=== PATIENT | female | born 1985 | race African-American/Black ===

== ENCOUNTER 2018-10-19 05:59 | Emergency (ER) | payer SELFPAY ==
[2018-10-19 07:26] VITALS: BP 130/65
--- NOTE | 2018-10-19 14:27 | ER Document Report ---
Entered by ANGELI CALLAHAN SCRIBE 10/19/18 0717 Acting as scribe for:JODEE GARCIA MD ED General - General Chief Complaint: Cough Stated Complaint: COUGHING UP BLOOD Time Seen by Provider: 10/19/18 07:04 Mode of Arrival: Ambulatory Information source: Patient Notes: Patient is a 33 year old female that presents to the emergency department today with complaints of noticing blood in her sputum when brushing her teeth this morning. Patient reports after brushing her teeth, she was rinsing out her mouth and she spit up some thin white normal-looking sputum that had blood in it. Patient mentions she has a bad tooth and she is unsure if that could be related. Patient mentions feeling a "bump" over the left side of her neck for x2 weeks as well. Patient has no smoking history. Patient denies any recent upper respiratory symptoms. - Related Data Allergies/Adverse Reactions: No Known Allergies Allergy (Unverified 10/19/18 06:05) Past Medical History - General Information source: Patient - Social History Smoking Status: Never Smoker Cigarette use (# per day): No Frequency of alcohol use: None Drug Abuse: None Occupation: Traveling nurse Lives with: Family Family History: Reviewed & Not Pertinent Patient has suicidal ideation: No Patient has homicidal ideation: No - Medical History Medical History: Negative Surgical Hx: Negative Review of Systems - Review of Systems Constitutional: No symptoms reported EENT: No symptoms reported Cardiovascular: No symptoms reported Respiratory: See HPI, Sputum - with blood. denies: Cough Gastrointestinal: No symptoms reported Genitourinary: No symptoms reported Female Genitourinary: No symptoms reported Musculoskeletal: No symptoms reported Skin: No symptoms reported Hematologic/Lymphatic: No symptoms reported Neurological/Psychological: No symptoms reported -: Yes All other systems reviewed and negative Physical Exam - Vital signs Vitals: Temp Pulse Resp BP Pulse Ox 98.2 F 88 16 135/73 H 100 10/19/18 06:02 10/19/18 06:02 10/19/18 06:02 10/19/18 06:02 10/19/18 06:02 - Notes Notes: Physical Exam: General: Alert, appears well. HEENT: Normocephalic. Atraumatic. PERRL. Extraocular movements intact. Oropharynx clear. Left lower 3rd molar pain with palpation (Tooth #17) Left lower 2nd molar (Tooth #18) is severely decayed, medial half of tooth is fractured and missing. Neck: Supple. Non-tender. Shotty, firm, mobile lymph node in the left upper posterior cervical chain. Respiratory: No respiratory distress. Clear and equal breath sounds bilaterally. Cardiovascular: Regular rate and rhythm. Grade 1 systolic murmur. Abdominal: Normal Inspection. Non-tender. No distension. Normal Bowel Sounds. Back: No gross abnormalities. Extremities: Moves all four extremities. Upper extremities: Normal inspection. Normal ROM. Lower extremities: Normal inspection. No edema. Normal ROM. Neurological: Normal cognition. AAOx4. Normal speech. Psychological: Normal affect. Normal Mood. Skin: Warm. Dry. Normal color. Course - Vital Signs Vital signs: Temp Pulse Resp BP Pulse Ox 98.1 F 71 16 130/65 H 100 10/19/18 07:26 10/19/18 07:26 10/19/18 07:26 10/19/18 07:26 10/19/18 07:26 Discharge - Discharge Clinical Impression: Hemoptysis, Dental decay Condition: Stable Disposition: HOME, SELF-CARE Additional Instructions: Hemoptysis Hemoptysis (coughing up blood) can occur with many different diseases. Most commonly, it's due to an infection such as bronchitis. Although alarming, the presence of blood in the phlegm doesn't change the treatment of bronchitis or pneumonia. The physician has evaluated you to see if there is evidence of an und erlying problem requiring further evaluation. If he has recommended further tests, you should follow up as instructed. Hemoptysis without an identifiable cause can be due to tumors or hidden infections. Return for a recheck if the blood increases greatly in amount, or if you develop shortness of breath, high fever, severe chest pain, or other alarming new symptoms. Your history suggests that you may have had some bleeding from around one of your decayed teeth that ran down into your airway when you were sleeping. This could have accounted for you seeing blood while you were brushing your teeth, and blood when you coughed up some phlegm. Be sure to floss your teeth regularly. Follow-up with a dentist to evaluate your decayed teeth. Follow-up with a local primary care provider if you continue to cough up blood. RETURN TO THE EMERGENCY ROOM IF ANY NEW OR WORSENING SYMPTOMS. Forms: Return to Work Scribe Attestation: 10/19/18 07:18 I personally performed the services described in the documentation, reviewed and edited the documentation which was dictated to the scribe in my presence, and it accurately records my words and actions. I personally performed the services described in the documentation, reviewed and edited the documentation which was dictated to the scribe in my presence, and it accurately records my words and actions.
== END 2018-10-19 07:28 | disposition home or self-care (01) ==
LOC: ER 05:59
DX: R04.2 Hemoptysis (principal); K08.89 Other specified disorders of teeth and supporting structures
CPT/HCPCS: 99283